=== PATIENT | female | born 1940 | race Caucasian/White ===

== ENCOUNTER → 2020-08-06 09:14 | Outpatient (CLI) | payer MEDICARE, OTHER, SELFPAY ==
--- NOTE | 2020-08-06 | DI.US.S_ITS ---
PROCEDURE: US CHEST COMPARISON: None. INDICATIONS: LEFT PLEURAL EFFUSION FINDINGS: Tiny left pleural effusion is present. There is complex appearance with low level internal echoes and possible septations. Insufficient fluid is present for thoracentesis. There is atelectasis. IMPRESSION: Insufficient fluid for thoracentesis. This was discussed in detail with the patient at the time of the examination. Findings and recommendations were personally telephoned and discussed with the Dr. Pitts's nurse (Tobi) on the morning of 08/06/20. Dictated by: Shaka Ferrell M.D. on 08/06/2020 at 10:29 Approved by: Shaka Ferrell M.D. on 08/06/2020 at 11:38
== END ==
PROVIDERS: PCP Family Medicine; Referring Provider Internal Medicine; Visit Provider Internal Medicine
DX: J90 Pleural effusion, not elsewhere classified (principal)
CPT/HCPCS: 76604

== ENCOUNTER → 2020-08-15 10:10 | Outpatient (CLI) | payer MEDICARE, OTHER, SELFPAY ==
--- NOTE | 2020-08-15 | DI.US.S_ITS ---
PROCEDURE: US CHEST COMPARISON: [facility], , CHEST, 08/06/2020, 9:36. INDICATIONS: LEFT PLEURAL EFFUSION FINDINGS: Multiloculated, honeycombed left pleural effusion is present and therefore no thoracentesis was performed. IMPRESSION: Multiloculated, honeycombed left pleural effusion. Dictated by: Olu SUTTON Interpreted: Tamara Cuellar MD on 08/15/2020 at 11:58 Approved by: Tamara Cuellar M.D. on 08/15/2020 at 16:54
== END ==
PROVIDERS: PCP Family Medicine; Referring Provider Internal Medicine; Visit Provider Internal Medicine
DX: J90 Pleural effusion, not elsewhere classified (principal)
CPT/HCPCS: 76604

== ENCOUNTER → 2020-09-06 07:51 | Outpatient (CLI) | payer MEDICARE, OTHER, SELFPAY ==
--- NOTE | 2020-09-06 | DI.US.S_ITS ---
PROCEDURE: US CHEST COMPARISON: [facility], , CHEST, 08/15/2020, 11:02. INDICATIONS: PLEURAL EFFUSION FINDINGS: There is markedly complex, echogenic left pleural contents which could reflect chronic blood products/clot, debris superimposed with areas of atelectasis. No simple appearing fluid is seen. Therefore, a scheduled thoracentesis was not performed. IMPRESSION: Large amount of complex echogenic left pleural contents which could reflect blood products or clot, debris and/or atelectatic lung. Technically cannot exclude areas of abnormal soft tissue/neoplasm. Inadequate simple appearing fluid for safe thoracentesis which was therefore canceled. This was discussed in detail with the patient at the time of the study, in addition to Dr. Francis on 09/06/20. Dictated by: Shaka Ferrell M.D. on 09/06/2020 at 10:45 Approved by: Shaka Ferrell M.D. on 09/06/2020 at 10:49
[2020-09-06 08:18] LABS: Hematocrit 26.7 % (36-46); Hemoglobin 8.7 g/dL (12.0-16.0); Mean Corpuscular HGB Conc 32.5 % (30-36); Mean Corpuscular Hemoglobin 28.1 PG (26-34); Mean Corpuscular Volume 86.7 fL (80-100); Platelet Count 618 X10^3/uL (150-400); Red Blood Cell Count 3.08 X10^6/uL (4.0-5.2); Red Cell Distribution Width 14.8 % (11.6-14.8); White Blood Cell Count 7.7 X10^3/uL (4.5-11.0)
[2020-09-06 09:29] LABS: INR 1.3 (0.9-1.3); Prothrombin Time 14.6 SECONDS (10.1-12.7)
== END ==
PROVIDERS: PCP Family Medicine; Referring Provider Internal Medicine; Visit Provider Internal Medicine
DX: C34.90 Malignant neoplasm of unspecified part of unspecified bronchus or lung (principal); J91.0 Malignant pleural effusion
CPT/HCPCS: 36415; 76604; 85027; 85610